=== PATIENT | female | born 1950 | race Two or more races ===

== ENCOUNTER 2019-04-02 08:21 | Outpatient (CLI) | payer OTHER | END 2019-04-02 08:34 | disposition home or self-care (01) | LOC: LAB 08:21 | DX: D50.0 Iron deficiency anemia secondary to blood loss (chronic) (principal); K76.0 Fatty (change of) liver, not elsewhere classified; I11.9 Hypertensive heart disease without heart failure; M32.0 Drug-induced systemic lupus erythematosus; B27 Infectious mononucleosis; C90.00 Multiple myeloma not having achieved remission ==

== ENCOUNTER → 2019-04-02 | Outpatient (CLI) | payer OTHER | END | disposition home or self-care (01) | LOC: SONOGRAMA 09:07 | DX: K76.0 Fatty (change of) liver, not elsewhere classified (principal) ==

== ENCOUNTER 2019-04-24 08:27 | Outpatient (CLI) | payer OTHER | END 2019-04-24 08:33 | disposition home or self-care (01) | LOC: LAB 08:27 | DX: I11.9 Hypertensive heart disease without heart failure (principal) ==

== ENCOUNTER 2019-06-07 07:09 | Outpatient (CLI) | payer OTHER | END 2019-06-07 07:15 | disposition home or self-care (01) | LOC: LAB 07:09 | DX: K76.0 Fatty (change of) liver, not elsewhere classified (principal); R74.0 Nonspecific elevation of levels of transaminase and lactic acid dehydrogenase [LDH]; D50.0 Iron deficiency anemia secondary to blood loss (chronic); D68.8 Other specified coagulation defects ==

== ENCOUNTER 2019-06-13 07:27 | Outpatient (CLI) | payer OTHER | END 2019-06-13 07:37 | disposition home or self-care (01) | LOC: LAB 07:27 | DX: K76.0 Fatty (change of) liver, not elsewhere classified (principal) ==

== ENCOUNTER 2019-07-10 07:15 | Outpatient (CLI) | payer OTHER | END 2019-07-10 09:23 | disposition home or self-care (01) | LOC: LAB 07:15 | DX: K76.0 Fatty (change of) liver, not elsewhere classified (principal); I10 Essential (primary) hypertension; E78.00 Pure hypercholesterolemia, unspecified; E03.8 Other specified hypothyroidism; D68.8 Other specified coagulation defects ==

== ENCOUNTER 2019-08-22 07:58 | Outpatient (CLI) | payer OTHER | END 2019-08-22 08:07 | disposition home or self-care (01) | LOC: LAB 07:58 | DX: E03.8 Other specified hypothyroidism (principal); K76.0 Fatty (change of) liver, not elsewhere classified; I11.9 Hypertensive heart disease without heart failure; E78.2 Mixed hyperlipidemia; D50.0 Iron deficiency anemia secondary to blood loss (chronic); I48.0 Paroxysmal atrial fibrillation ==

== ENCOUNTER 2019-11-08 07:19 | Outpatient (CLI) | payer OTHER | END 2019-11-08 07:26 | disposition home or self-care (01) | LOC: LAB 07:19 | DX: D50.0 Iron deficiency anemia secondary to blood loss (chronic) (principal); I11.9 Hypertensive heart disease without heart failure; E03.8 Other specified hypothyroidism; I48.0 Paroxysmal atrial fibrillation ==

== ENCOUNTER 2019-11-14 08:16 | Outpatient (CLI) | payer OTHER | END 2019-11-14 15:00 | disposition home or self-care (01) | LOC: LAB 08:16 | DX: R94.8 Abnormal results of function studies of other organs and systems (principal) ==

== ENCOUNTER 2019-11-27 08:19 | Outpatient (CLI) | payer OTHER | END 2019-11-27 15:00 | disposition home or self-care (01) | LOC: LAB 08:19 | DX: E78.2 Mixed hyperlipidemia (principal); I11.9 Hypertensive heart disease without heart failure; E03.8 Other specified hypothyroidism; D50.0 Iron deficiency anemia secondary to blood loss (chronic); I48.0 Paroxysmal atrial fibrillation; K76.89 Other specified diseases of liver ==

== ENCOUNTER 2019-12-11 07:37 | Outpatient (CLI) | payer OTHER | END 2019-12-11 09:07 | disposition home or self-care (01) | LOC: LAB 07:37 | DX: E03.8 Other specified hypothyroidism (principal); N94.5 Secondary dysmenorrhea ==

== ENCOUNTER 2019-12-27 09:08 | Outpatient (CLI) | payer OTHER | END 2019-12-27 15:00 | disposition home or self-care (01) | LOC: LAB 09:08 | DX: K74.69 Other cirrhosis of liver (principal) ==

== ENCOUNTER → 2020-04-21 06:19 | Outpatient (CLI) | payer OTHER | END | disposition home or self-care (01) | LOC: LAB 06:19 | PROVIDERS: ATTEND Dermatology | DX: R10.0 Acute abdomen (principal); R68.83 Chills (without fever); E78.49 Other hyperlipidemia ==

== ENCOUNTER 2020-05-15 07:41 | Outpatient (CLI) | payer OTHER | END 2020-05-15 08:36 | disposition home or self-care (01) | LOC: LAB 07:41 | PROVIDERS: ATTEND Internal Medicine Cardiovascular Disease | DX: I11.9 Hypertensive heart disease without heart failure (principal); E11.9 Type 2 diabetes mellitus without complications; E78.00 Pure hypercholesterolemia, unspecified; K76.0 Fatty (change of) liver, not elsewhere classified; E03.8 Other specified hypothyroidism ==

== ENCOUNTER 2021-03-17 08:21 | Outpatient (CLI) | payer OTHER | END 2021-03-17 08:33 | disposition home or self-care (01) | LOC: LAB 08:21 | PROVIDERS: ATTEND Internal Medicine Cardiovascular Disease | DX: D50.0 Iron deficiency anemia secondary to blood loss (chronic) (principal); I11.9 Hypertensive heart disease without heart failure; E78.00 Pure hypercholesterolemia, unspecified; E03.8 Other specified hypothyroidism; M32.8 Other forms of systemic lupus erythematosus; K76.89 Other specified diseases of liver; E11.9 Type 2 diabetes mellitus without complications; D63.8 Anemia in other chronic diseases classified elsewhere; D24.9 Benign neoplasm of unspecified breast; E78.1 Pure hyperglyceridemia; E78.2 Mixed hyperlipidemia; E55.9 Vitamin D deficiency, unspecified; Z12.12 Encounter for screening for malignant neoplasm of rectum; C54.1 Malignant neoplasm of endometrium; K76.1 Chronic passive congestion of liver; K76.9 Liver disease, unspecified; R80.8 Other proteinuria; R30.0 Dysuria; K73.8 Other chronic hepatitis, not elsewhere classified; K92.1 Melena; N39.0 Urinary tract infection, site not specified; N39.8 Other specified disorders of urinary system; D01.0 Carcinoma in situ of colon; C56.9 Malignant neoplasm of unspecified ovary; D50.8 Other iron deficiency anemias ==

== ENCOUNTER 2021-05-19 08:53 | Outpatient (CLI) | payer OTHER | END 2021-05-19 18:00 | disposition home or self-care (01) | LOC: LAB 08:53 | PROVIDERS: ATTEND Internal Medicine Cardiovascular Disease | DX: B99.8 Other infectious disease (principal); N39.8 Other specified disorders of urinary system; D50.0 Iron deficiency anemia secondary to blood loss (chronic); B96.89 Other specified bacterial agents as the cause of diseases classified elsewhere; E03.8 Other specified hypothyroidism; I11.9 Hypertensive heart disease without heart failure ==

== ENCOUNTER 2021-06-13 07:50 | Outpatient (CLI) | payer OTHER | END 2021-06-13 07:54 | disposition home or self-care (01) | LOC: LAB 07:50 | PROVIDERS: ATTEND Internal Medicine Cardiovascular Disease | DX: D50.0 Iron deficiency anemia secondary to blood loss (chronic) (principal); I11.9 Hypertensive heart disease without heart failure; E78.2 Mixed hyperlipidemia; E03.8 Other specified hypothyroidism; E55.9 Vitamin D deficiency, unspecified ==

== ENCOUNTER 2021-07-07 09:09 | Outpatient (CLI) | payer OTHER | END 2021-07-07 09:18 | disposition home or self-care (01) | LOC: SONOGRAMA 09:09 | PROVIDERS: ATTEND Internal Medicine Cardiovascular Disease | DX: N64.4 Mastodynia (principal); N64.59 Other signs and symptoms in breast ==

== ENCOUNTER 2021-11-06 13:53 | Outpatient (CLI) | payer OTHER | END 2021-11-06 13:59 | disposition home or self-care (01) | LOC: LAB 13:53 | PROVIDERS: ATTEND Internal Medicine Cardiovascular Disease | DX: D50.0 Iron deficiency anemia secondary to blood loss (chronic) (principal); K76.0 Fatty (change of) liver, not elsewhere classified; D64.89 Other specified anemias ==

== ENCOUNTER 2022-01-05 07:28 | Outpatient (CLI) | payer OTHER | END 2022-01-05 07:35 | disposition home or self-care (01) | LOC: LAB 07:28 | PROVIDERS: ATTEND Internal Medicine | DX: K74.69 Other cirrhosis of liver (principal); K74.5 Biliary cirrhosis, unspecified ==

== ENCOUNTER 2022-01-18 10:20 | Outpatient (CLI) | payer OTHER | END 2022-01-18 10:22 | disposition home or self-care (01) | LOC: MAMO-SONO 10:20 | PROVIDERS: ATTEND Specialist | DX: N63.11 Unspecified lump in the right breast, upper outer quadrant (principal); N63.20 Unspecified lump in the left breast, unspecified quadrant; N83.209 Unspecified ovarian cyst, unspecified side ==

== ENCOUNTER 2022-03-26 08:00 | Outpatient (CLI) | payer OTHER | END 2022-03-26 08:14 | disposition home or self-care (01) | LOC: LAB 08:00 | DX: K74.60 Unspecified cirrhosis of liver (principal) ==

== ENCOUNTER 2022-06-30 07:13 | Outpatient (CLI) | payer OTHER | END 2022-06-30 07:14 | disposition home or self-care (01) | LOC: LAB 07:13 | PROVIDERS: ATTEND Internal Medicine Cardiovascular Disease | DX: D50.0 Iron deficiency anemia secondary to blood loss (chronic) (principal); I11.9 Hypertensive heart disease without heart failure; E78.2 Mixed hyperlipidemia; E03.9 Hypothyroidism, unspecified; E55.9 Vitamin D deficiency, unspecified; E11.9 Type 2 diabetes mellitus without complications ==

== ENCOUNTER 2022-11-09 07:47 | Outpatient (CLI) | payer OTHER | END 2022-11-09 07:52 | disposition home or self-care (01) | LOC: LAB 07:47 | PROVIDERS: ATTEND Internal Medicine Cardiovascular Disease | DX: D50.8 Other iron deficiency anemias (principal); I10 Essential (primary) hypertension; K76.9 Liver disease, unspecified; K76.0 Fatty (change of) liver, not elsewhere classified; E03.9 Hypothyroidism, unspecified; E11.9 Type 2 diabetes mellitus without complications; D68.9 Coagulation defect, unspecified; K74.69 Other cirrhosis of liver; K74.00 Hepatic fibrosis, unspecified ==

== ENCOUNTER 2023-05-11 12:22 | Outpatient (CLI) | payer OTHER | END 2023-05-11 12:34 | disposition home or self-care (01) | LOC: MAMO-SONO 12:22 | PROVIDERS: ATTEND Internal Medicine Cardiovascular Disease | DX: N64.4 Mastodynia (principal) ==

== ENCOUNTER → 2023-08-03 06:45 | Outpatient (CLI) | payer OTHER ==
[2023-08-03 07:46] LABS: PH,URINE 5.5 (5.0-8.0); URINE APPEARANCE Cloudy; URINE BILIRRUBIN Negative (NEGATIVE); URINE BLOOD Trace; URINE COLOR Orange; URINE GLUCOSE Negative (NEGATIVE); URINE LEUKOCYTE Moderate; URINE NITRATE Negative; URINE PROTEIN Negative (NEGATIVE); URINE UROBILINOGEN 0.2 E.U./dl
[2023-08-03 07:47] LABS: URINE BACTERIA 2833.5 uL (0.0-1933); URINE EPITHELIAL CELLS 87.9 uL (0.0-38.8); URINE RBC 5.7 uL (0.0-20.8); URINE WBC 105.1 uL (0.0-23.2)
[2023-08-03 08:05] LABS: HEMATOCRIT 42.8 % (36.0-45.00); HEMOGLOBIN 14.7 g/dL (12.0-15.00); MEAN CELL VOLUME 91.7 fL (80.00-100.00); MEAN CORPUSCULAR HEMOGLOBIN 31.5 pg (27.00-32.0); MEAN CORPUSCULAR HGB CONC 34.4 g/dl (32.0-36.0); PLATELET COUNT 131 K/uL (150-450); RED BLOOD COUNT 4.66 M/uL (4.00-6.00); RED CELL DISTRIBUTION WIDTH 14.4 % (11.5-14.5)
[2023-08-03 08:21] LABS: ERYTHROCYTE SEDIMENTATION RATE 20 mm/hr
[2023-08-03 09:03] LABS: T3 TOTAL 1.29 ng/ml (0.846-2.02); VITAMIN D3 25 HYDROXY 28.42 ng/ml (30-120)
[2023-08-03 09:11] LABS: ALBUMIN 3.6 gm/dL (3.4-5.0); BILIRUBIN TOTAL 0.72 mg/dL (0.3-1.2); CALCIUM 9.3 mg/dL (8.5-10.1); CHOL HDL RATIO 3.6 (0-5.0); CREATININE SERUM 0.66 mg/dL (0.55-1.02); GFR 87.31; GLOBULINA 4.3 G/DL (2.4-3.5); POTASSIUM 3.59 mEq/L (3.5-5.1); TOTAL PROTEIN 7.9 gm/dL (6.4-8.2); TSH 4.16 uIU/mL (0.358-3.74)
== END | disposition home or self-care (01) ==
LOC: LAB 06:45
PROVIDERS: ATTEND Internal Medicine Cardiovascular Disease
DX: D50.0 Iron deficiency anemia secondary to blood loss (chronic) (principal); I11.9 Hypertensive heart disease without heart failure; E78.2 Mixed hyperlipidemia; E03.9 Hypothyroidism, unspecified; E55.9 Vitamin D deficiency, unspecified; D64.9 Anemia, unspecified; Z12.11 Encounter for screening for malignant neoplasm of colon; M32.0 Drug-induced systemic lupus erythematosus

== ENCOUNTER 2023-08-08 09:58 | Outpatient (CLI) | payer OTHER ==
[2023-08-08 11:15] LABS: ob NEGATIVE (NEGATIVE)
== END 2023-08-08 10:55 | disposition home or self-care (01) ==
LOC: LAB 09:58
PROVIDERS: ATTEND Internal Medicine Cardiovascular Disease
DX: D50.0 Iron deficiency anemia secondary to blood loss (chronic) (principal); I11.9 Hypertensive heart disease without heart failure; E78.2 Mixed hyperlipidemia; E03.9 Hypothyroidism, unspecified; E55.9 Vitamin D deficiency, unspecified; E11.9 Type 2 diabetes mellitus without complications; Z12.11 Encounter for screening for malignant neoplasm of colon; M32.10 Systemic lupus erythematosus, organ or system involvement unspecified

== ENCOUNTER 2023-08-08 10:23 | Outpatient (CLI) | payer OTHER | END 2023-08-08 10:30 | disposition home or self-care (01) | LOC: RAD 10:23 | PROVIDERS: ATTEND Internal Medicine Cardiovascular Disease | DX: M54.40 Lumbago with sciatica, unspecified side (principal) ==

== ENCOUNTER 2023-12-14 08:31 | Outpatient (CLI) | payer OTHER | END 2023-12-14 08:39 | disposition home or self-care (01) | LOC: SONOGRAMA 08:31 | PROVIDERS: ATTEND Internal Medicine Cardiovascular Disease | DX: K76.0 Fatty (change of) liver, not elsewhere classified (principal); I11.9 Hypertensive heart disease without heart failure ==

== ENCOUNTER 2023-12-29 07:39 | Outpatient (CLI) | payer OTHER | END 2023-12-29 07:48 | disposition home or self-care (01) | LOC: LAB 07:39 | DX: C54.1 Malignant neoplasm of endometrium (principal) ==

== ENCOUNTER 2024-05-14 07:24 | Outpatient (CLI) | payer OTHER | END 2024-05-14 07:26 | disposition home or self-care (01) | LOC: SONOGRAMA 07:24 | PROVIDERS: ATTEND Specialist | DX: N83.10 Corpus luteum cyst of ovary, unspecified side (principal) ==

== ENCOUNTER 2024-06-14 09:31 | Outpatient (CLI) | payer OTHER | END 2024-06-14 09:54 | disposition home or self-care (01) | LOC: SONOGRAMA 09:31 | PROVIDERS: ATTEND Internal Medicine Cardiovascular Disease | DX: N64.4 Mastodynia (principal); N63.11 Unspecified lump in the right breast, upper outer quadrant; Z12.31 Encounter for screening mammogram for malignant neoplasm of breast; Z80.3 Family history of malignant neoplasm of breast ==

== ENCOUNTER 2024-07-20 07:24 | Outpatient (CLI) | payer OTHER ==
[2024-07-20 08:15] LABS: HEMATOCRIT 42.9 % (36.0-45.00); HEMOGLOBIN 15.2 g/dL (12.0-15.00); MEAN CELL VOLUME 88.7 fL (80.00-100.00); MEAN CORPUSCULAR HEMOGLOBIN 31.4 pg (27.00-32.0); MEAN CORPUSCULAR HGB CONC 35.4 g/dl (32.0-36.0); PLATELET COUNT 155 K/uL (150-450); RED BLOOD COUNT 4.84 M/uL (4.00-6.00); RED CELL DISTRIBUTION WIDTH 13.6 % (11.5-14.5)
[2024-07-20 08:41] LABS: INR 1.07; PARTIAL THROMBOPLASTIN TIME 29.4 SECONDS (22.0-34.0); PROTHROMBIN TIME 11.6 SECONDS (9.0-11.5)
[2024-07-20 08:51] LABS: URINE APPEARANCE Clear; URINE BILIRRUBIN Negative (NEGATIVE); URINE BLOOD Trace; URINE COLOR Dark Yellow; URINE GLUCOSE Negative (NEGATIVE); URINE KETONE Negative (NEGATIVE); URINE LEUKOCYTE Trace; URINE NITRATE Negative; URINE PROTEIN 30 (NEGATIVE)
[2024-07-20 08:56] LABS: URINE BACTERIA 70.5 uL (0.0-1933); URINE EPITHELIAL CELLS 23.7 uL (0.0-38.8); URINE RBC 12.8 uL (0.0-20.8); URINE WBC 23.7 uL (0.0-23.2)
[2024-07-20 08:59] LABS: ALBUMIN 4.1 gm/dL (3.4-5.0); BILIRUBIN TOTAL 0.66 mg/dL (0.3-1.2); CALCIUM 9.2 mg/dL (8.5-10.1); CREATININE SERUM 0.6 mg/dL (0.55-1.02); GFR 97.2; POTASSIUM 3.75 mEq/L (3.5-5.1); T4 TOTAL 12.17 UG/DL (4.8-13.9); TOTAL PROTEIN 8.1 gm/dL (6.4-8.2); TSH 2.32 uIU/mL (0.358-3.74)
[2024-07-20 09:04] LABS: URINE CAST 0.15 uL (0.0-1.40)
[2024-07-20 09:44] LABS: T3 TOTAL 1.26 ng/ml (0.846-2.02); VITAMIN D3 25 HYDROXY 32.85 ng/ml (30-120)
[2024-07-21 07:09] LABS: HEPATITIS A ANTIBODY IGG Positive (Negative)
[2024-07-23 09:29] LABS: ob NEGATIVE (NEGATIVE)
== END 2024-07-20 07:35 | disposition home or self-care (01) ==
LOC: LAB 07:24
PROVIDERS: ATTEND Internal Medicine Cardiovascular Disease
DX: D50.0 Iron deficiency anemia secondary to blood loss (chronic) (principal); E78.2 Mixed hyperlipidemia; E03.9 Hypothyroidism, unspecified; E55.9 Vitamin D deficiency, unspecified; E11.9 Type 2 diabetes mellitus without complications; Z12.11 Encounter for screening for malignant neoplasm of colon; D64.9 Anemia, unspecified; K74.60 Unspecified cirrhosis of liver; R79.1 Abnormal coagulation profile; D68.9 Coagulation defect, unspecified; R94.5 Abnormal results of liver function studies; K74.5 Biliary cirrhosis, unspecified; I11.9 Hypertensive heart disease without heart failure

== ENCOUNTER 2024-07-30 13:01 | Outpatient (CLI) | payer OTHER | END 2024-07-30 13:15 | disposition home or self-care (01) | LOC: NUCLEAR 13:01 | PROVIDERS: ATTEND Specialist | DX: M81.0 Age-related osteoporosis without current pathological fracture (principal) ==

== ENCOUNTER 2025-04-30 07:40 | Outpatient (CLI) | payer OTHER ==
[2025-04-30 08:33] LABS: BASO % 0.6 % (0.1-1.2); EOS # 0.09 (0.04-0.54); EOS % 1.3 % (0.7-7.0); LYMPH # 2.30 (1.18-3.74); LYMPH % 33.8 % (19.3-53.1); MEAN PLATELET VOLUME 10.30 fl (9.4-12.4); MONO # 0.80 (0.24-0.82); MONO % 11.8 % (4.7-12.5); NEUT # 3.51 (1.56-6.13); NEUT % 51.6 % (34.0-71.1); RED CELL DISTRIBUTION WIDTH 13.1 % (11.6-14.4)
[2025-04-30 09:04] LABS: URINE APPEARANCE Clear; URINE BILIRRUBIN Negative (NEGATIVE); URINE BLOOD Trace; URINE COLOR Yellow; URINE GLUCOSE Negative (NEGATIVE); URINE KETONE Negative (NEGATIVE); URINE LEUKOCYTE Small; URINE NITRATE Negative; URINE PROTEIN Trace (NEGATIVE); URINE UROBILINOGEN 0.2 E.U./dl
[2025-04-30 09:08] LABS: URINE BACTERIA 298.7 uL (0.0-1933); URINE EPITHELIAL CELLS 7.9 uL (0.0-38.8); URINE RBC 7.1 uL (0.0-20.8); URINE WBC 14.5 uL (0.0-23.2)
[2025-04-30 09:12] LABS: URINE CAST 0.00 uL (0.0-1.40)
[2025-04-30 09:29] LABS: ALT/SGPT 56.0 U/L (12-78); AST/SGOT 45.0 U/L (15-37); BILIRUBIN TOTAL 0.76 mg/dL (0.3-1.2); BUN CREA RATIO 17.0 (7.0-25.0); CHOL HDL RATIO 4.6 (0-5.0); CREATININE SERUM 0.6 mg/dL (0.55-1.02); GFR 96.94; GLOBULINA 4.4 G/DL (2.4-3.5); GLUCOSE FASTING 109.0 mg/dL (65-100); HDL 38.0 mg/dl (40-60); LDL 115.0 mg/dl (0-130); OSMOLALITY SERUM 290.0 MOSM/KG (275-295); T4 TOTAL 12.85 UG/DL (4.8-13.9); TSH 1.18 uIU/mL (0.358-3.74); VLDL 21.0 (0-39)
[2025-04-30 11:15] LABS: T3 TOTAL 1.54 ng/ml (0.846-2.02); VITAMIN D3 25 HYDROXY 47.16 ng/ml (30-120)
== END 2025-04-30 07:55 | disposition home or self-care (01) ==
LOC: LAB 07:40
PROVIDERS: ATTEND Internal Medicine Cardiovascular Disease
DX: D50.0 Iron deficiency anemia secondary to blood loss (chronic) (principal); I11.9 Hypertensive heart disease without heart failure; E78.2 Mixed hyperlipidemia; E03.9 Hypothyroidism, unspecified; E55.9 Vitamin D deficiency, unspecified; E11.9 Type 2 diabetes mellitus without complications